=== PATIENT | female | born 1995 | race Caucasian/White ===

== ENCOUNTER 2017-05-08 19:58 | Emergency (ER) | payer OTHER ==
[~2017-05-08] VITALS: Ht 167.6 cm; Wt 65.2 kg
[~2017-05-08 19:58] MED LIST: ALBU6.7H INH; BUPR-173 PO; EPIN0.3P3 INJ; LAMO200T3 PO; METH18TA5 PO; SERT100T PO; ZOLP-413 PO
[2017-05-08 19:59] VITALS: BP 122/80
== END 2017-05-08 21:58 | disposition home or self-care (01) ==
LOC: ED 21:52
DX: J02.8 Acute pharyngitis due to other specified organisms (principal); B97.89 Other viral agents as the cause of diseases classified elsewhere; F31.9 Bipolar disorder, unspecified; Z88.0 Allergy status to penicillin; Z91.018 Allergy to other foods
CPT/HCPCS: 36415; 86308; 87081; 87147; 87880; 99284

== ENCOUNTER 2018-02-07 14:47 | Emergency (ER) | payer OTHER ==
[~2018-02-07] VITALS: Ht 167.6 cm; Wt 73.5 kg
[2018-02-07 14:53] VITALS: BP 127/81
== END 2018-02-07 16:07 | disposition home or self-care (01) ==
LOC: ED 15:58
DX: S93.402A Sprain of unspecified ligament of left ankle, initial encounter (principal); F31.9 Bipolar disorder, unspecified; X50.1XXA Overexertion from prolonged static or awkward postures, initial encounter; Y93.02 Activity, running; Y92.89 Other specified places as the place of occurrence of the external cause; Y99.8 Other external cause status
CPT/HCPCS: 99284

== ENCOUNTER 2018-12-16 17:04 | Emergency (ER) | payer OTHER ==
[~2018-12-16] VITALS: Ht 170.2 cm; Wt 75.0 kg
[2018-12-16 17:20] VITALS: BP 142/59
--- NOTE | 2018-12-16 17:32 | NUR ---
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
== END 2018-12-16 18:36 | disposition home or self-care (01) ==
LOC: ED 17:48
DX: J32.0 Chronic maxillary sinusitis (principal); F31.9 Bipolar disorder, unspecified; Z87.891 Personal history of nicotine dependence
CPT/HCPCS: 99283